=== PATIENT | male | born 1950 | race Caucasian/White ===

== ENCOUNTER 2023-02-04 06:56 | Outpatient (CLI) | payer OTHER ==
[2023-02-04 09:21] LABS: HEMATOCRIT 38.4 % (39.0-48.0); HEMOGLOBIN 13.3 g/dL (13-16.00); MEAN CELL VOLUME 88.5 fL (80.0-100.00); MEAN CORPUSCULAR HEMOGLOBIN 30.6 pg (27.00-32.0); MEAN CORPUSCULAR HGB CONC 34.6 g/dl (32.0-36.0); PLATELET COUNT 165 K/uL (150-450); RED BLOOD COUNT 4.33 M/uL (4.00-6.00); RED CELL DISTRIBUTION WIDTH 13.8 % (11.5-14.5)
[2023-02-04 09:37] LABS: % SATURACION 28.2 % (20-50); ALBUMIN 3.7 gm/dL (3.4-5.0); BILIRUBIN TOTAL 0.54 mg/dL (0.3-1.2); CALCIUM 8.5 mg/dL (8.5-10.1); CREATININE SERUM 0.86 mg/dL (0.70-1.30); FERRITIN 63.8 NG/ML (26-388); GFR 87.66; GLOBULINA 3.2 G/DL (2.4-3.5); POTASSIUM 4.12 mEq/L (3.5-5.1); TOTAL PROTEIN 6.9 gm/dL (6.4-8.2)
[2023-02-04 14:54] LABS: MANUAL PLATELET COUNT 190
[2023-02-04 14:55] LABS: PLATELET ESTIMATE NORMAL (NORMAL)
== END 2023-02-04 07:24 | disposition home or self-care (01) ==
LOC: LAB 06:56
PROVIDERS: ATTEND Internal Medicine Hematology & Oncology
DX: D50.8 Other iron deficiency anemias (principal); R79.9 Abnormal finding of blood chemistry, unspecified; I10 Essential (primary) hypertension; R74.02 Elevation of levels of lactic acid dehydrogenase [LDH]; K76.89 Other specified diseases of liver; D63.8 Anemia in other chronic diseases classified elsewhere; D55.0 Anemia due to glucose-6-phosphate dehydrogenase [G6PD] deficiency; D51.1 Vitamin B12 deficiency anemia due to selective vitamin B12 malabsorption with proteinuria; D51.0 Vitamin B12 deficiency anemia due to intrinsic factor deficiency; E06.3 Autoimmune thyroiditis; R97.0 Elevated carcinoembryonic antigen [CEA]; R97.8 Other abnormal tumor markers; Z80.0 Family history of malignant neoplasm of digestive organs; D72.819 Decreased white blood cell count, unspecified; N40.3 Nodular prostate with lower urinary tract symptoms; H40.9 Unspecified glaucoma; I73.9 Peripheral vascular disease, unspecified

== ENCOUNTER → 2023-03-22 07:43 | Outpatient (CLI) | payer OTHER ==
[2023-03-22 10:16] LABS: CREATININE SERUM 0.94 mg/dL (0.70-1.30); PROSTATIC SPECIFIC ANTIGEN 0.279 NG/ML (0.010-4.00)
== END | disposition home or self-care (01) ==
LOC: LAB 07:43
PROVIDERS: ATTEND Internal Medicine
DX: I10 Essential (primary) hypertension (principal); N40.0 Benign prostatic hyperplasia without lower urinary tract symptoms

== ENCOUNTER 2023-03-24 07:20 | Outpatient (CLI) | payer OTHER | END 2023-03-24 07:26 | disposition home or self-care (01) | LOC: TOM 07:20 | PROVIDERS: ATTEND Internal Medicine | DX: R10.84 Generalized abdominal pain (principal); R10.2 Pelvic and perineal pain | CPT/HCPCS: 74178; Q9965 ==

== ENCOUNTER 2023-05-07 07:14 | Outpatient (CLI) | payer OTHER | END 2023-05-07 07:20 | disposition home or self-care (01) | LOC: MRI 07:14 | PROVIDERS: ATTEND Internal Medicine Hematology & Oncology | DX: R97.0 Elevated carcinoembryonic antigen [CEA] (principal); D70.2 Other drug-induced agranulocytosis; Z80.0 Family history of malignant neoplasm of digestive organs; I48.20 Chronic atrial fibrillation, unspecified; I10 Essential (primary) hypertension; N40.1 Benign prostatic hyperplasia with lower urinary tract symptoms; H40.9 Unspecified glaucoma; E78.2 Mixed hyperlipidemia; I73.9 Peripheral vascular disease, unspecified; C64.2 Malignant neoplasm of left kidney, except renal pelvis; N28.1 Cyst of kidney, acquired; Q44.6 Cystic disease of liver | CPT/HCPCS: 74183 ==

== ENCOUNTER → 2023-06-18 07:08 | Outpatient (CLI) | payer OTHER ==
[2023-06-18 08:25] LABS: ALBUMIN 3.8 gm/dL (3.4-5.0); CALCIUM 8.9 mg/dL (8.5-10.1); CREATININE SERUM 0.91 mg/dL (0.70-1.30); GFR 81.9; PHOSPHOROUS 3.2 mg/dL (2.5-4.9); POTASSIUM 4.21 mEq/L (3.5-5.1)
== END | disposition home or self-care (01) ==
LOC: LAB 07:08
PROVIDERS: ATTEND Urology
DX: C64.2 Malignant neoplasm of left kidney, except renal pelvis (principal)

== ENCOUNTER 2023-07-13 08:04 | Outpatient (CLI) | payer OTHER | END 2023-07-13 08:06 | disposition home or self-care (01) | LOC: NUCLEAR 08:04 | PROVIDERS: ATTEND Urology | DX: C64.2 Malignant neoplasm of left kidney, except renal pelvis (principal) ==

== ENCOUNTER → 2023-10-13 06:30 | Outpatient (CLI) | payer OTHER ==
[2023-10-13 07:06] LABS: URINE APPEARANCE Clear; URINE BILIRRUBIN Negative (NEGATIVE); URINE BLOOD Negative; URINE COLOR Yellow; URINE GLUCOSE Negative (NEGATIVE); URINE LEUKOCYTE Negative; URINE NITRATE Negative; URINE PROTEIN Negative (NEGATIVE); URINE UROBILINOGEN 0.2 E.U./dl
[2023-10-13 07:13] LABS: HEMATOCRIT 40.3 % (39.0-48.0); HEMOGLOBIN 13.8 g/dL (13-16.00); MEAN CELL VOLUME 89.9 fL (80.0-100.00); MEAN CORPUSCULAR HEMOGLOBIN 30.8 pg (27.00-32.0); MEAN CORPUSCULAR HGB CONC 34.3 g/dl (32.0-36.0); PLATELET COUNT 149 K/uL (150-450); RED BLOOD COUNT 4.49 M/uL (4.00-6.00); RED CELL DISTRIBUTION WIDTH 14.1 % (11.5-14.5)
[2023-10-13 07:28] LABS: URINE BACTERIA 3.7 uL (0.0-1933); URINE EPITHELIAL CELLS 0.9 uL (0.0-38.8); URINE RBC 1.8 uL (0.0-20.8); URINE WBC 0.6 uL (0.0-23.2)
[2023-10-13 07:51] LABS: URIC ACID 5.9 mg/dL (3.5-8.5)
[2023-10-13 07:58] LABS: ALBUMIN 3.8 gm/dL (3.4-5.0); BILIRUBIN TOTAL 0.65 mg/dL (0.3-1.2); CALCIUM 8.8 mg/dL (8.5-10.1); CHOL HDL RATIO 2.6 (0-5.0); CREATININE SERUM 0.93 mg/dL (0.70-1.30); GFR 79.87; GLOBULINA 3.2 G/DL (2.4-3.5); POTASSIUM 4.21 mEq/L (3.5-5.1); TSH 1.49 uIU/mL (0.358-3.74)
[2023-10-13 12:01] LABS: FOLIC ACID > 20.00 ng/ml (4.78-20)
[2023-10-14 07:10] LABS: hav igm Negative (Negative); hcv Non Reactive (Non Reactive); hep b c Negative (Negative)
[2023-10-15 08:48] LABS: MANUAL PLATELET COUNT 244
[2023-10-15 08:52] LABS: PLATELET ESTIMATE NORMAL (NORMAL)
== END | disposition home or self-care (01) ==
LOC: LAB 06:30
PROVIDERS: ATTEND Internal Medicine Hematology & Oncology
DX: R97.0 Elevated carcinoembryonic antigen [CEA] (principal); R97.8 Other abnormal tumor markers; D50.8 Other iron deficiency anemias; I10 Essential (primary) hypertension; R74.02 Elevation of levels of lactic acid dehydrogenase [LDH]; K76.89 Other specified diseases of liver; D51.8 Other vitamin B12 deficiency anemias; B20 Human immunodeficiency virus [HIV] disease; B17.9 Acute viral hepatitis, unspecified; Z11.59 Encounter for screening for other viral diseases; I11.9 Hypertensive heart disease without heart failure; E78.2 Mixed hyperlipidemia; E03.9 Hypothyroidism, unspecified; E79.0 Hyperuricemia without signs of inflammatory arthritis and tophaceous disease; E11.9 Type 2 diabetes mellitus without complications

== ENCOUNTER 2023-12-22 15:16 | Outpatient (CLI) | payer OTHER ==
[2023-12-22 16:55] LABS: CREATININE SERUM 0.89 mg/dL (0.70-1.30)
== END 2023-12-22 15:21 | disposition home or self-care (01) ==
LOC: LAB 15:16
PROVIDERS: ATTEND Radiology Diagnostic Radiology
DX: R10.30 Lower abdominal pain, unspecified (principal)

== ENCOUNTER 2024-01-07 07:06 | Outpatient (CLI) | payer OTHER | END 2024-01-07 07:11 | disposition home or self-care (01) | LOC: TOM 07:06 | PROVIDERS: ATTEND Urology | DX: C64.2 Malignant neoplasm of left kidney, except renal pelvis (principal); N28.1 Cyst of kidney, acquired | CPT/HCPCS: 74177; Q9965 ==

== ENCOUNTER 2024-07-10 12:58 | Outpatient (CLI) | payer OTHER | END 2024-07-10 13:01 | disposition home or self-care (01) | LOC: SONOGRAMA 12:58 | PROVIDERS: ATTEND Urology | DX: N28.1 Cyst of kidney, acquired (principal) ==

== ENCOUNTER 2025-01-03 07:05 | Outpatient (CLI) | payer OTHER | END 2025-01-03 07:10 | disposition home or self-care (01) | LOC: MRI 07:05 | PROVIDERS: ATTEND Urology | DX: N28.1 Cyst of kidney, acquired (principal) | CPT/HCPCS: 74183; Q9965 ==